=== PATIENT | male | born 1955 | race Caucasian/White ===

== ENCOUNTER → 2019-01-26 | Outpatient (CLI) | payer BC ==
--- NOTE | 2019-01-26 15:35 | PCVCIMAG ---
APPROVED REPORT Study performed: 01/26/2019 13:59:30 EXAM: Comprehensive 2D, Doppler, and color-flow Echocardiogram Patient Location: Echo lab Room #: 2Status: routine BSA: 2.48 HR: 63 bpmBP: 134/92 mmHg Rhythm: NSR, incomplete RBBB Other Information Study Quality: Good Risk Factors: Cardiac Risk Factors: FHX of CAD Indications Dyspnea coronary calcium score 15. 2D Dimensions IVSd: 9.60 (7-11mm)LVOT Diam: 25.51 (18-24mm) LVDd: 60.73 mm PWd: 8.77 (7-11mm)Ascending Ao: 38.58 (22-36mm) LVDs: 37.30 (25-40mm) Left Atrium: 33.90 (27-40mm) Aortic Root: 32.57 mm LV Single Plane 4CH: 58.44 % LV Single Plane 2CH: 67.08 % Biplane EF: 63.3 % Volumes Left Atrial Volume (Systole) Single Plane 4CH: 25.76 mLSingle Plane 2CH: 48.58 mL Biplane LA Volume: 37.00 mLLA ESV Index: 15.00 mL/m2 Aortic Valve AoV Peak Jus.: 1.51 m/s AO Peak Gr.: 9.10 mmHgLVOT Max P.59 mmHg LVOT Max V: 1.07 m/s YULY Vmax: 3.63 cm2 AI Vmax: 5.01 m/s AI Harney: 2.18 m/s2 AI PHT: 666.79 ms Mitral Valve E/A Ratio: 0.8 MV Decel. Time: 167.61 ms MV E Max Jus.: 0.49 m/s MV A Jus.: 0.62 m/s IVRT: 96.89 ms TDI E/Lateral E': 9.80E/Medial E': 7.00 Medial E' Jus.: 0.07 m/s Lateral E' Jus.: 0.05 m/s Pulmonary Valve PV Peak Jus.: 1.13 m/sPV Peak Gr.: 5.09 mmHg Tricuspid Valve TR Peak Jus.: 2.28 m/s TR Peak Gr.: 20.88 mmHg TV Vmax: 0.70 m/sPA Pressure: 28.00 mmHg Left Ventricle The left ventricle is normal size. There is normal LV segmental wall motion. There is normal left ventricular wall thickness. Left ventricular systolic function is normal. The left ventricular ejection fraction is within the normal range. LVEF is 60-65%. Grade I - abnormal relaxation pattern. Right Ventricle The right ventricle is normal size. The right ventricular systolic function is normal. Atria The left atrium size is normal. The right atrium size is normal. Aortic Valve Aortic valve is trileaflet. The aortic valve is normal in structure and function. Trace aortic regurgitation. There is no aortic valvular stenosis. Mitral Valve The mitral valve is normal in structure. There is no mitral valve regurgitation noted. No evidence of mitral valve stenosis. Tricuspid Valve The tricuspid valve is normal in structure. Trace tricuspid regurgitation. No pulmonary hypertension. Pulmonic Valve The pulmonary valve is normal in structure. There is no pulmonic valvular regurgitation. Great Vessels The aortic root is normal in size. The ascending aorta is borderline dilated. Aortic arch is normal in caliber. IVC is normal in size and collapses >50% with inspiration. Pericardium There is no pericardial effusion. There is no pleural effusion. <Conclusion> The left ventricle is normal size. There is normal left ventricular wall thickness. Left ventricular systolic function is normal. Grade I - abnormal relaxation pattern. The right ventricle is normal size. The left atrium size is normal. The aortic valve is normal in structure and function. Trace aortic regurgitation. The mitral valve is normal in structure. Trace tricuspid regurgitation.
--- NOTE | 2019-01-26 15:48 | PCVCIMAG ---
APPROVED REPORT Study performed: 01/26/2019 14:38:36 Exam: Stress Echocardiogram Indication: Dyspnea Patient Location: Echo lab Stress Nurse: Daisy Alvares RN Room #: 2 Status: routine Ht: 6 ft 7 in HR: 63 bpm BP: 134/92 mmHg Rhythm: NSR,incomplete RBBB Medical History Medical History: No history of CAD Cardiac Risk Factors: FHX of CAD Previous Cardiac Procedures: none Pretest Chest Pain Characteristics: No chest pain Exercise History: Physically active Procedure The patient underwent an Exercise Stress Test using the Nevaeh Protocol. Blood pressure, heart rate, and EKG were monitored. An Echocardiogram was performed by master motorcycle technician in four stages in quad fashion. At peak stress, four selected images were obtained and placed side by side with resting images for comparison. Stress Test Details Stress Test: Exercise stress testing was performed using a Nevaeh protocol. HR Resting HR: 74 bpmMax Heart Rate (APMHR): 158 bpm Max HR Achieved: 139 bpmTarget HR (85% APMHR): 134 bpm % of APMHR: 87 Recovery HR: 83 bpm HR response to stress: Normal HR response to stress BP Resting BP: 134/92 mmHg Max BP: 160/90 mmHg Recovery BP: 134/86 mmHg BP response to stress: Normal blood pressure response to stress. ECG Resting ECG: Sinus Rhythm, NSSTT changes Stress ECG: Sinus Rhythm ST Change: Non-ischemic Arrhythmia: None Recovery ECG: Sinus Rhythm Recovery ST Change: Non-ischemic Recovery Arrhythmia: None Clinical Reason for Termination: Maximal effort Stress Symptoms: Fatigue Exercise duration: 9 min 45 sec Highest Stage Achieved: Stage 4: 4.2 mph at 16% grade. Exercise capacity: 12.5 METs Overall Exercise Capacity for Age: Good Angina Score: None No complications. Stress ECG Conclusion The patient exercised according to the NEVAEH protocol for 9:45 mins; achieving a work level of 12.5 METS. The resting heart rate of 74 bpm chyna to a maximum heart rate of 139 bpm. This value represent 87% of the maximal, age-predicted heart rate. The resting blood pressure of 134/92 mmHg, chyna to a maximum blood pressure of 160/90 mmHg. The exercise test was stopped due to fatigue and dyspnea. Pre-Stress Echo The resting Echocardiogram showed normal left ventricular contractility with an estimated Ejection Fraction of about 55-60%. Normal wall motion in all segments on baseline images. Post-Stress Echo The stress Echocardiogram showed normal left ventricular contractility with an estimated Ejection Fraction of about 65-70%. Normal augmentation of wall motion in all segments on post stress images. Clinical No clinical or ECG evidence for ischemia. Conclusion Clinical Response: Non-ischemic Exercise Capacity: Above Average Stress ECG Response: Non-ischemic Stress Echo Images: Non-ischemic No clinical, EKG or echocardiographic evidence for ischemia. Normal stress echocardiogram with maximal exercise stress. <Conclusion> No clinical, EKG or echocardiographic evidence for ischemia. Normal stress echocardiogram with maximal exercise stress.
== END | disposition home or self-care (01) ==
LOC: PCVCIMAG 13:55
PROVIDERS: ATTEND Internal Medicine Cardiovascular Disease
DX: R06.00 Dyspnea, unspecified (principal); R93.1 Abnormal findings on diagnostic imaging of heart and coronary circulation
CPT/HCPCS: 93306; 93351